=== PATIENT | male | born 1955 | race African-American/Black ===

== ENCOUNTER → 2019-11-23 11:52 | Outpatient (BNVA) | payer OTHER, SELFPAY | PROVIDERS: Visit Provider Internal Medicine | DX: M54.6 Pain in thoracic spine (principal); M54.5 Low back pain | CPT/HCPCS: 99213 ==

== ENCOUNTER → 2019-12-07 09:04 | Outpatient (BNVA) | payer OTHER, SELFPAY | PROVIDERS: Visit Provider Internal Medicine | DX: M54.5 Low back pain (principal) | CPT/HCPCS: 99213 ==

== ENCOUNTER 2019-12-12 09:00 | Outpatient (RCR) | payer OTHER, BC, SELFPAY ==
--- NOTE | 2019-12-29 08:35 | MHC.PT.DC ---
[facility] [place] Office [place] Office [place] Office [address] Jarvis Galeano [address] [phone] F: [phone] F: [phone] F: [phone] F: [phone] Physical Therapy Discharge Report Diagnosis: pt is a 64 y/o male presenting to physical therapy w/ script of lumbar strain. Date of Surgery: N/A Date of Evaluation: 10/10/19 Date of Discharge: 12/29/19 Treatments to Date: 13 Cancellations to Date: 0 No Shows to Date: 6 Discharge Status: Improved Function Independent with HEP Visit Non-compliance Discharge Summary: The patient has no showed his last four appointments scheduled. He was improving in his pain severity and radicular symptoms. He has progressed to a strengthening program and is independent with a home exercise program. He was educated regarding proper lifting mechanics and patient transfers for work-related tasks. He is discharged from this physical therapy plan of care due to noncompliance. Electronically signed by: Doris Breaux PT, DPT Please sign and return to therapist. Thank you for your referral.
== END 2019-12-29 08:35 | disposition other institution (70) ==
LOC: HO.PT 09:00
PROVIDERS: Visit Provider Physician Assistant
DX: S39.012D Strain of muscle, fascia and tendon of lower back, subsequent encounter (principal)
CPT/HCPCS: 97110; 97530

== ENCOUNTER → 2019-12-21 08:53 | Outpatient (BNVA) | payer OTHER, SELFPAY | PROVIDERS: Visit Provider Internal Medicine | DX: M54.5 Low back pain (principal); R10.31 Right lower quadrant pain | CPT/HCPCS: 99214 ==

== ENCOUNTER 2020-01-05 18:24 | Emergency (ER) | payer BC, SELFPAY ==
[2020-01-05 19:15] VITALS: BP 139/77; PULSE 76; RESP 20; TEMP 37.2; O2SAT 97; BMI 29.0
--- NOTE | 2020-01-05 19:50 | ECG_ITS ---
Test Reason : DYSPNEA Blood Pressure : / mmHG Vent. Rate : 067 BPM Atrial Rate : 067 BPM P-R Int : 156 ms QRS Dur : 088 ms QT Int : 364 ms P-R-T Axes : 049 001 014 degrees QTc Int : 384 ms Normal sinus rhythm Normal ECG When compared with ECG of 09-NOV-2017 08:52, Vent. rate has increased BY 24 BPM Referred By: Natalya Curiel Electronically Signed By:SUNDAR TRUJILLO MD
--- NOTE | 2020-01-05 19:50 | XR_ITS ---
EXAMINATION: XR CHEST CLINICAL INFORMATION: Chest pain and shortness of breath COMPARISON: 11/09/2017 TECHNIQUE: Frontal view of the chest was obtained. FINDINGS: No significant abnormality is noted involving the heart, lungs, mediastinum, bony thorax or soft tissues. Again noted is borderline sized heart. XR/XR chest 1V IMPRESSION: No acute intrathoracic disease.
--- NOTE | 2020-01-05 20:23 | ED.SOB ---
HPI - SOB/Dyspnea General Chief Complaint: Dyspnea Stated Complaint: SOB COVID + Time Seen by Provider: 01/05/20 19:37 Source: patient Mode of arrival: ambulatory History of Present Illness HPI Narrative: 64-year-old male COVID-19 positive on Wednesday presenting to ED complaining of increased SOB, myalgias, and fatigue over the past few days. Also reports chest discomfort and subjective fevers at home. 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 of breath and cough Related Data Previous Rx's Medication Instructions Recorded albuterol sulfate 2 puff INHALATION Q4-6H PRN #6.7 g 01/05/20 Allergies Allergy/AdvReac Type Severity Reaction Status Date / Time No Known Allergies Allergy Unverified 10/26/19 16:15 [No Known Allergies*] Review of Systems Review of Systems: Constitutional: No Weight loss, No+ Fever, No Chills Cardiovascular: + Chest Pain, + SOB Respiratory: + Cough, No Sputum, No Wheezing Gastrointestinal: No Nausea, No Vomiting, No Diarrhea, No Constipation, No Abdominal pain Genitourinary: No Dysuria, No Urinary Frequency, No Hematuria Musculoskeletal: No joint pain, + Myalgias, No Joint Swelling Skin: No Skin Lesions, No rash Yes all other systems are reviewed and are negative [facility] Past Medical History Attestation statement: The following information was validated with the patient. Medical History (Updated 01/05/20 @ 20:28 by BRANDI Hays) No known health problems Social History Social History Alcohol intake: current Alcohol intake frequency: a few times a month Smoking Status: Never smoker Smoked in Last 30 Days: No Use of substances other than those prescribed or required for medical reasons: No Advance Directives: No Advance Directives Information Provided: No Physical Exam Vital Signs: Vital Signs: Last Vital Signs Temp 98.9 F 01/05/20 19:15 Pulse 76 01/05/20 19:15 Resp 20 01/05/20 19:15 BP 139/77 01/05/20 19:15 Pulse Ox 97 01/05/20 19:15 Body Mass Index 29.0 Const: General: cooperative and healthy appearing Orientation/consciousness: patient oriented x3 Limitations: no limitations HENMT: Head: Yes normal to inspection Ears: hearing grossly normal bilaterally General nose exam: Normal external nose present Face and sinus: Yes normal facial exam Eyes: General: appearance normal, both eyes and all related structures EOM: EOMs intact bilaterally Neck: Neck: Yes normal visual inspection Resp: Effort & Inspection: normal respiratory effort Auscultation: clear to auscultation bilaterally, no rhonchi and no wheezes Cardio: Rate: regular rate Heart sounds: S1 normal heart sound present and S2 normal heart sound present GI: Inspection: Yes normal to inspection Palpation (GI): Soft to palpation, nontender, no guarding and not rigid Skin: Rashes: no rashes Wounds: no wounds Neuro: General: patient oriented x3 Gait exam (Neuro): Normal gait present Extrem: Other: No LE edema or calf tenderness General: Yes normal to inspection Course Course Course Narrative: -CXR unremarkable -2099--ED care transferred to [facility] Trimble pending labs and anticipated DC home MDM - SOB/Dyspnea MDM Narrative Medical decision making narrative: 64-year-old male COVID-19 positive on Wednesday presenting to ED complaining of increased SOB, myalgias, and fatigue over the past few days. On exam VSS, NAD, well appearing, lungs CTA, no LE edema. Concern for COVID-19/viral syndrome. Rule out pneumonia. Lower concern for ACS/PE Plan: EKG, labs, CXR, reassess Discharge Plan Discharge Clinical Impression: COVID-19 Patient Disposition: Home, Self-Care Instructions: COVID-19 (Coronavirus Disease 2019) (ED) Additional Instructions: Your x-ray was unremarkable today in the ED Based on your symptoms and history we have sent a COVID-19. Although your RESULT IS PENDING at this time. RESULTS should return within 72 hours. At this time you will be contacted with either NEGATIVE OR POSITIVE results. -Please wait until we contact you for your results. At this time you will be okay for discharge. Please plan for self quarantine for up to 14 days. Do not expose yourself to others. You may not go to work. If testing does come back negative you may return to activities as long as you are no longer having any symptoms for at least 3 days. Please continue to follow cold instructions and wash your hands frequently. You may take Tylenol as directed on the bottle for pain or fever. Patient seen in the emergency department on 08/04/2019 and should be excused from work until negative test results AND until 72 hours without any symptoms AND at least 10 days have passed since symptoms first appeared or since last exposure to COVID-19 positive patient CDC Guidelines for home isolation: - Stay away from others - WEAR A MASK if you are sick AND STAY HOME - Cover your mouth and nose with a tissue when you cough or sneeze. Dispose of tissues in a lined trash can and wash your hands immediately with soap and water for at least 20 seconds. If soap and water are not available, clean hands with alcohol-based hand natural gas engineer that contains at least 60% alcohol. - Clean your hands often with soap and water for at least 20 seconds - Avoid touching your eyes, nose and mouth with unwashed hands - Do not share dishes, drinking glasses, cups, eating utensils, towels, or bedding with other people in your home. After using these items, wash them thoroughly with soap and water or put in the fiber heel piece shaper. - Clean high-touch surfaces in your isolation area ( sick room and bathroom) every day; let a caregiver clean and disinfect high-touch surfaces in other areas of the home. Clean the area or item with soap and water or another detergent if it is dirty. Then, use a household disinfectant. - Limit contact with pets and animals: If you must care for a pet, wash your hands before and after interacting with them) Prescriptions: New albuterol sulfate 90 mcg/actuation HFA aerosol inhaler 2 puff inhalation Q4-6H PRN (Reason: shortness of breath or wheezing) Qty: 6.7 RF: 0 Referrals: Physician,Unknown [Primary Care Provider] - 2 days (Your doctor call)
[2020-01-05 21:07] LABS: MANUAL DIFF FLAG NO
[2020-01-05 21:12] LABS: Basophils Percent Auto 0.2 % (0-2); Eosinophils Absolute Auto 0.1 X10*3/uL (0.0-0.4); Eosinophils Percent Auto 1.4 % (0-4); Hematocrit 44.1 % (42-52); Hemoglobin 14.5 g/dl (14.0-18.0); Imm Gran Abs Auto 0.01 X10*3/uL (0.00-0.03); Imm Gran Pct Auto 0.2 % (0.0-0.4); Lymphocytes Absolute Auto 0.9 X10*3/uL (1.2-4.9); Lymphocytes Percent Auto 19.6 % (20-40); Mean Corpuscular HGB Conc 32.9 g/dl (31.0-36.0); Mean Corpuscular Hemoglobin 29.1 pg (27.0-33.0); Mean Corpuscular Volume 88.6 fL (80-98); Mean Platelet Volume 10.8 fL (9.4-12.4); Monocytes Absolute Auto 0.5 X10*3/uL (0.1-1.2); Monocytes Percent Auto 11.2 % (2-11); Neutrophils Percent Auto 67.4 % (45-73); Platelet Count 175 X10*3/uL (160-400); Red Blood Count 4.98 X10*6/uL (4.60-5.80); Red Cell Distribution Width 11.9 % (11.0-16.0); White Blood Count 4.4 X10*3/uL (4.8-10.8)
[2020-01-05 21:39] LABS: Alanine Aminotransferase 17 U/L (0-40); Alkaline Phosphatase 71 U/L (39-117); Anion Gap 12 (12-20); Aspartate Amino Transferase 14 U/L (5-37); Bilirubin Direct 0.2 mg/dL (0.0-0.5); Bilirubin Total 0.5 mg/dL (0.0-1.0); Blood Urea Nitrogen 12 mg/dL (9-16); Calcium 8.8 mg/dL (8.4-10.2); Carbon Dioxide 31 mmol/L (22-29); Chloride 100 mmol/L (96-108); Creatinine Clr Calc Pharmacy 85.1; Estimated Glomerular Filt Rate > 60; Glucose Random 82 mg/dL (60-115); Lactate Dehydrogenase 186 U/L (118-273); Potassium 4.5 mmol/l (3.3-5.1); Sodium 138 mmol/L (135-145); Total Protein 6.9 g/dL (6.5-8.0)
[2020-01-05 21:46] LABS: B Type Natriuretic Peptide < 10 pg/mL (<100); Troponin-I High Sensitivity < 3.5 ng/L (<3.5-35.0)
[2020-01-05 21:56] LABS: Procalcitonin 0.04 ng/mL
[2020-01-05 22:03] LABS: Ferritin 242 ng/mL (20-250)
== END 2020-01-05 22:27 | disposition home or self-care (01) ==
PROVIDERS: Physician Assistant; Emergency Provider Emergency Medicine
DX: U07.1 COVID-19 (principal); R05 Cough; M79.10 Myalgia, unspecified site; R07.89 Other chest pain; R06.02 Shortness of breath; Z20.828 Contact with and (suspected) exposure to other viral communicable diseases
CPT/HCPCS: 36415; 71045; 80048; 80076; 82728; 83615; 83735; 83880; 84145; 84484; 85025; 93005; 99284

== ENCOUNTER → 2020-01-26 13:40 | Outpatient (BNVA) | payer OTHER, SELFPAY | PROVIDERS: Visit Provider Internal Medicine | DX: R10.30 Lower abdominal pain, unspecified (principal); M54.5 Low back pain | CPT/HCPCS: 99213 ==

== ENCOUNTER → 2020-02-13 09:44 | Outpatient (BNVA) | payer OTHER, SELFPAY | PROVIDERS: Visit Provider Internal Medicine | DX: R10.30 Lower abdominal pain, unspecified (principal); M54.5 Low back pain | CPT/HCPCS: 99213 ==

== ENCOUNTER → 2020-03-05 08:24 | Outpatient (BNVA) | payer OTHER, SELFPAY | PROVIDERS: Visit Provider Internal Medicine | DX: R20.2 Paresthesia of skin (principal); M54.5 Low back pain | CPT/HCPCS: 99213 ==

== ENCOUNTER 2022-04-29 18:01 | Emergency (ER) | payer MEDICARE, SELFPAY ==
--- NOTE | ~2022-04-29 | XR_ITS ---
EXAMINATION: XR CHEST CLINICAL INFORMATION: Pain. COMPARISON: Chest radiograph 01/05/2020. TECHNIQUE: 2 views of the chest were obtained. FINDINGS: No significant abnormality is noted involving the heart, lungs, mediastinum, bony thorax or soft tissues. XR/XR chest 2V IMPRESSION: Unremarkable examination.
[2022-04-29 18:03] VITALS: BP 134/75; PULSE 79; RESP 18; TEMP 36.9; O2SAT 95; BMI 28.1
--- NOTE | 2022-04-29 18:05 | ECG_ITS ---
Test Reason : CHEST PAIN Blood Pressure : / mmHG Vent. Rate : 071 BPM Atrial Rate : 071 BPM P-R Int : 168 ms QRS Dur : 100 ms QT Int : 354 ms P-R-T Axes : 055 -01 036 degrees QTc Int : 384 ms Normal sinus rhythm with sinus arrhythmia Normal ECG When compared with ECG of 05-JAN-2020 20:30, No significant change was found Referred By: Jin Whyte Electronically Signed By:DEMAR MOORE MD
--- NOTE | 2022-04-29 18:08 | ED.GENADULT ---
HPI - General Adult General Chief complaint: Upper Respiratory Symptoms <Jin Whyte - Last Filed: 04/29/22 18:09> Stated complaint: Chest Pain, Cough <Jin Whyte - Last Filed: 04/29/22 18:09> Time Seen by Provider: 04/29/22 21:46 <Jin Whyte - Last Filed: 04/29/22 18:09> Source: patient <Marcella Casas MD - Last Filed: 04/29/22 22:06> Mode of arrival: ambulatory <Marcella Casas MD - Last Filed: 04/29/22 22:06> Limitations: no limitations <Marcella Casas MD - Last Filed: 04/29/22 22:06> History of Present Illness HPI narrative: Patient comes in the emergency room complaining of paranasal pain, sinus pressure. Subjective fever and chills. Patient also complaining of coughing and producing phlegm. Patient states that he has been having chest pain only with coughing, no chest pain at this time, no shortness of breath. <Marcella Casas MD - Last Filed: 04/29/22 22:06> Related Data Home medications: Previous Rx's Medication Instructions Recorded albuterol sulfate 90 mcg/actuation 2 puff inhalation Q4-6H PRN 01/05/20 aerosol inhaler shortness of breath or wheezing #6.7 grams azithromycin 250 mg tablet 250 mg PO DAILY 4 days #4 tabs 04/29/22 fluticasone propionate 50 1 spray intranasal Q12H #16 grams 04/29/22 mcg/actuation nasal spray,suspension (Flonase Allergy Relief) <Jin Whyte - Last Filed: 04/29/22 18:09> Allergies/adverse reactions: Allergies Allergy/AdvReac Type Severity Reaction Status Date / Time No Known Allergies Allergy Unverified 10/26/19 16:15 [No Known Allergies*] <Jin Whyte - Last Filed: 04/29/22 18:09> Review of Systems Review of Systems: Constitutional : No Weight loss, No Fever, No Chills, No Night Sweats, No Fatigue, No Malaise ENT/Mouth : No ear pain, complaining of nasal congestion and sinus pressure, no sore throat Eyes: No Eye Pain, No Swelling, No Redness, No Foreign Body, No Discharge, No Vision Changes Cardiovascular : No Chest Pain, No SOB, No Dyspnea on Exertion, No Orthopnea, No Edema, No Palpitations Respiratory : No Cough, No Sputum, No Wheezing, No Smoke Exposure, No Dyspnea Gastrointestinal : No Nausea, No Vomiting, No Diarrhea, No Constipation, No abdominal Pain, No Hematochezia, No Melena Genitourinary : no irregular bleeding, No Dysuria, No Urinary Frequency, No Hematuria, No Urinary Incontinence, No Urgency, No Flank Pain, No Urinary Flow Changes, No Hesitancy Musculoskeletal : No joint pain, No Myalgias, No Joint Swelling Skin : No Skin Lesions, No rash Neuro : No Weakness, No Numbness, No Paresthesias, No Loss of Consciousness, No Dizziness, No Headache Psych : No Anxiety/Panic, No Depression, No SI/HI/AH/VH, No Social Issues, Heme/Lymph: No Bruising, No Bleeding,No Lymphadenopathy Endocrine : No Polyuria, No Polydipsia, No Temperature Intolerance <Marcella Casas MD - Last Filed: 04/29/22 22:06> [facility] Past Medical History Medical History: Medical History No known health problems <Jin Whyte - Last Filed: 04/29/22 18:09> Social History Social History: Social History Alcohol intake: current Alcohol intake frequency: a few times a month Advance Directives: No Advance Directives Information Provided: Yes <Jin Whyte - Last Filed: 04/29/22 18:09> Physical Exam ED Vital Signs: Vital Signs - 24 hr 04/29/22 18:03 Temperature 98.4 F Pulse Rate 79 Respiratory Rate 18 Blood Pressure 134/75 Pulse Oximetry 95 Oxygen Delivery Method Room Air BMI result Body Mass Index 28.1 <Jin Whyte - Last Filed: 04/29/22 18:09> Vital Signs - 24 hr 04/29/22 18:03 Temperature 98.4 F Pulse Rate 79 Respiratory Rate 18 Blood Pressure 134/75 Pulse Oximetry 95 Oxygen Delivery Method Room Air BMI result Body Mass Index 28.1 <Marcella Casas MD - Last Filed: 04/29/22 22:06> Const Other: Appearance: Alert. Oriented X3. No acute distress. Eyes: Pupils equal, round and reactive to light. ENT: Pharynx normal. No erythema, no exudates, pain to palpation over the paranasal sinuses Neck: Normal inspection. Neck supple. No lymph nodes noted. No crepitus CVS: Normal heart rate and rhythm. Pulses normal. Normal S1 and S2 Respiratory: No respiratory distress. Breath sounds normal. No Wheezing. No rales Abdomen: Soft and nontender. No rigidity. No distention. Skin: Skin warm and dry. Normal skin color. Normal skin turgor. Extremities: No lower extremity edema. No Lacerations. No Rash Neuro: Oriented X 3. No motor deficit. No sensory deficit. Moving all extremities. No slurred speech. CN 2 through 12 grossly intact Psych: calm, cooperative, normal affect <Marcella Casas MD - Last Filed: 04/29/22 22:06> Course Course Course Narrative: This 66-year-old male presents for evaluation of multiple complaints including chest pain, shortness of breath, cough with yellow tinged present. He also complains of chills. Workup ordered including chest x-ray, viral swab, EKG and labs <Jin Whyte - Last Filed: 04/29/22 18:09> Medical Decision Making Medical Decision Making MDM Narrative: -viral panel negative, white blood cell count unremarkable, no fever chills, normal blood pressure -my interpretation of chest x-ray: No infiltrates -patient is significantly tender to palpation over the paranasal sinuses, patient will be given a dose of Z-Jason. First dose given in the ED today. <Marcella Casas MD - Last Filed: 04/29/22 22:06> Differential Diagnosis Differential Diagnoses: The differential diagnosis associated with the presentation includes (Influenza, COVID, RSV, viral syndrome, bacterial sinusitis) <Marcella Casas MD - Last Filed: 04/29/22 22:06> Lab Data MDM Lab Attestation statement: I reviewed the patient's lab results. <Marcella Casas MD - Last Filed: 04/29/22 22:06> Result Diagrams: 04/29/22 18:20 04/29/22 18:20 <Jin Whyte - Last Filed: 04/29/22 18:09> Labs: Lab Results 03/22/23 03/22/23 03/22/23 Range/Units 18:20 18:20 18:20 WBC 7.0 (4.8-10.8) X10*3/uL RBC 4.42 L (4.60-5.80) X10*6/uL Hgb 13.1 L (14.0-18.0) g/dl Hct 39.4 L (42.0-52.0) % MCV 89.1 (80.0-98.0) fL MCH 29.6 (27.0-33.0) pg MCHC 33.2 (31.0-36.0) g/dl RDW 11.7 (11.0-16.0) % Plt Count 219 (160-400) X10*3/uL MPV 10.5 (9.4-12.4) fL Immature Gran % (Auto) 1.0 H (0.0-0.4) % Neut % (Auto) 68.5 (45-73) % Lymph % (Auto) 19.8 L (20-40) % [place] % (Auto) 7.7 (2-11) % Eos % (Auto) 2.6 (0-4) % Baso % (Auto) 0.4 (0-2) % Lymph # (Auto) 1.4 (1.2-4.9) X10*3/uL [place] # (Auto) 0.5 (0.1-1.2) X10*3/uL Eos # (Auto) 0.2 (0.0-0.4) X10*3/uL Baso # (Auto) 0.0 (0.0-0.2) X10*3/uL Abs Immat Gran (auto) 0.07 H (0.00-0.03) X10*3/uL Absolute Neuts (auto) 4.8 (2.0-8.3) x10*3/uL Absolute Nucleated RBC 0.000 (0.0-0.012) X10*3/uL Nucleated RBC % (auto) 0.0 (0.0-0.2) /100WBC Sodium 144 (135-145) mmol/L Potassium 3.9 (3.3-5.1) mmol/L Chloride 108 (96-108) mmol/L Carbon Dioxide 26 (22-29) mmol/L Anion Gap 14 (12-20) BUN 9 (9-16) mg/dL Creatinine 0.88 (0.5-1.4) mg/dL Estim Creat Clear Calc 85.6 Estimated GFR > 60 Random Glucose 124 H (60-115) mg/dL Calcium 9.0 (8.4-10.2) mg/dL Magnesium 2.2 (1.6-2.6) mg/dL Total Bilirubin 0.4 (0.0-1.0) mg/dL AST 12 (5-37) U/L ALT 17 (0-40) U/L Alkaline Phosphatase 79 (39-117) U/L Troponin I High Sens < 3.5 (<3.5-35.0) ng/L Total Protein 6.5 (6.5-8.0) g/dL Albumin 4.0 (3.5-5.0) g/dL Lipase 18 (8-78) U/L Influenza Type A (PCR) (Negative) Influenza Type B (PCR) (Negative) RSV RNA Qual (PCR) (Negative) SARS-CoV-2 RNA (RT-PCR) (Negative) 04/29/22 Range/Units 18:20 WBC (4.8-10.8) X10*3/uL RBC (4.60-5.80) X10*6/uL Hgb (14.0-18.0) g/dl Hct (42.0-52.0) % MCV (80.0-98.0) fL MCH (27.0-33.0) pg MCHC (31.0-36.0) g/dl RDW (11.0-16.0) % Plt Count (160-400) X10*3/uL MPV (9.4-12.4) fL Immature Gran % (Auto) (0.0-0.4) % Neut % (Auto) (45-73) % Lymph % (Auto) (20-40) % [place] % (Auto) (2-11) % Eos % (Auto) (0-4) % Baso % (Auto) (0-2) % Lymph # (Auto) (1.2-4.9) X10*3/uL [place] # (Auto) (0.1-1.2) X10*3/uL Eos # (Auto) (0.0-0.4) X10*3/uL Baso # (Auto) (0.0-0.2) X10*3/uL Abs Immat Gran (auto) (0.00-0.03) X10*3/uL Absolute Neuts (auto) (2.0-8.3) x10*3/uL Absolute Nucleated RBC (0.0-0.012) X10*3/uL Nucleated RBC % (auto) (0.0-0.2) /100WBC Sodium (135-145) mmol/L Potassium (3.3-5.1) mmol/L Chloride (96-108) mmol/L Carbon Dioxide (22-29) mmol/L Anion Gap (12-20) BUN (9-16) mg/dL Creatinine (0.5-1.4) mg/dL Estim Creat Clear Calc Estimated GFR Random Glucose (60-115) mg/dL Calcium (8.4-10.2) mg/dL Magnesium (1.6-2.6) mg/dL Total Bilirubin (0.0-1.0) mg/dL AST (5-37) U/L ALT (0-40) U/L Alkaline Phosphatase (39-117) U/L Troponin I High Sens (<3.5-35.0) ng/L Total Protein (6.5-8.0) g/dL Albumin (3.5-5.0) g/dL Lipase (8-78) U/L Influenza Type A (PCR) NEGATIVE (Negative) Influenza Type B (PCR) NEGATIVE (Negative) RSV RNA Qual (PCR) NEGATIVE (Negative) SARS-CoV-2 RNA (RT-PCR) NEGATIVE (Negative) <Jin Whyte - Last Filed: 04/29/22 18:09> Lab Results 04/29/22 04/29/22 04/29/22 Range/Units 18:20 18:20 18:20 WBC 7.0 (4.8-10.8) X10*3/uL RBC 4.42 L (4.60-5.80) X10*6/uL Hgb 13.1 L (14.0-18.0) g/dl Hct 39.4 L (42.0-52.0) % MCV 89.1 (80.0-98.0) fL MCH 29.6 (27.0-33.0) pg MCHC 33.2 (31.0-36.0) g/dl RDW 11.7 (11.0-16.0) % Plt Count 219 (160-400) X10*3/uL MPV 10.5 (9.4-12.4) fL Immature Gran % (Auto) 1.0 H (0.0-0.4) % Neut % (Auto) 68.5 (45-73) % Lymph % (Auto) 19.8 L (20-40) % [place] % (Auto) 7.7 (2-11) % Eos % (Auto) 2.6 (0-4) % Baso % (Auto) 0.4 (0-2) % Lymph # (Auto) 1.4 (1.2-4.9) X10*3/uL [place] # (Auto) 0.5 (0.1-1.2) X10*3/uL Eos # (Auto) 0.2 (0.0-0.4) X10*3/uL Baso # (Auto) 0.0 (0.0-0.2) X10*3/uL Abs Immat Gran (auto) 0.07 H (0.00-0.03) X10*3/uL Absolute Neuts (auto) 4.8 (2.0-8.3) x10*3/uL Absolute Nucleated RBC 0.000 (0.0-0.012) X10*3/uL Nucleated RBC % (auto) 0.0 (0.0-0.2) /100WBC Sodium 144 (135-145) mmol/L Potassium 3.9 (3.3-5.1) mmol/L Chloride 108 (96-108) mmol/L Carbon Dioxide 26 (22-29) mmol/L Anion Gap 14 (12-20) BUN 9 (9-16) mg/dL Creatinine 0.88 (0.5-1.4) mg/dL Estim Creat Clear Calc 85.6 Estimated GFR > 60 Random Glucose 124 H (60-115) mg/dL Calcium 9.0 (8.4-10.2) mg/dL Magnesium 2.2 (1.6-2.6) mg/dL Total Bilirubin 0.4 (0.0-1.0) mg/dL AST 12 (5-37) U/L ALT 17 (0-40) U/L Alkaline Phosphatase 79 (39-117) U/L Troponin I High Sens < 3.5 (<3.5-35.0) ng/L Total Protein 6.5 (6.5-8.0) g/dL Albumin 4.0 (3.5-5.0) g/dL Lipase 18 (8-78) U/L Influenza Type A (PCR) (Negative) Influenza Type B (PCR) (Negative) RSV RNA Qual (PCR) (Negative) SARS-CoV-2 RNA (RT-PCR) (Negative) 04/29/22 Range/Units 18:20 WBC (4.8-10.8) X10*3/uL RBC (4.60-5.80) X10*6/uL Hgb (14.0-18.0) g/dl Hct (42.0-52.0) % MCV (80.0-98.0) fL MCH (27.0-33.0) pg MCHC (31.0-36.0) g/dl RDW (11.0-16.0) % Plt Count (160-400) X10*3/uL MPV (9.4-12.4) fL Immature Gran % (Auto) (0.0-0.4) % Neut % (Auto) (45-73) % Lymph % (Auto) (20-40) % [place] % (Auto) (2-11) % Eos % (Auto) (0-4) % Baso % (Auto) (0-2) % Lymph # (Auto) (1.2-4.9) X10*3/uL [place] # (Auto) (0.1-1.2) X10*3/uL Eos # (Auto) (0.0-0.4) X10*3/uL Baso # (Auto) (0.0-0.2) X10*3/uL Abs Immat Gran (auto) (0.00-0.03) X10*3/uL Absolute Neuts (auto) (2.0-8.3) x10*3/uL Absolute Nucleated RBC (0.0-0.012) X10*3/uL Nucleated RBC % (auto) (0.0-0.2) /100WBC Sodium (135-145) mmol/L Potassium (3.3-5.1) mmol/L Chloride (96-108) mmol/L Carbon Dioxide (22-29) mmol/L Anion Gap (12-20) BUN (9-16) mg/dL Creatinine (0.5-1.4) mg/dL Estim Creat Clear Calc Estimated GFR Random Glucose (60-115) mg/dL Calcium (8.4-10.2) mg/dL Magnesium (1.6-2.6) mg/dL Total Bilirubin (0.0-1.0) mg/dL AST (5-37) U/L ALT (0-40) U/L Alkaline Phosphatase (39-117) U/L Troponin I High Sens (<3.5-35.0) ng/L Total Protein (6.5-8.0) g/dL Albumin (3.5-5.0) g/dL Lipase (8-78) U/L Influenza Type A (PCR) NEGATIVE (Negative) Influenza Type B (PCR) NEGATIVE (Negative) RSV RNA Qual (PCR) NEGATIVE (Negative) SARS-CoV-2 RNA (RT-PCR) NEGATIVE (Negative) <Marcella Casas MD - Last Filed: 04/29/22 22:06> Independent Interpretation I performed an independent interpretation of an: Plain X-Ray <Marcella Casas MD - Last Filed: 04/29/22 22:06> Radiology Impression Discussion of test interpretation with radiology: I have reviewed the radiologist's reading. <Marcella Casas MD - Last Filed: 04/29/22 22:06> Radiologist Impression: FINDINGS: No significant abnormality is noted involving the heart, lungs, mediastinum, bony thorax or soft tissues. XR/XR chest 2V IMPRESSION: Unremarkable examination. <Marcella Casas MD - Last Filed: 04/29/22 22:06> Discharge Plan Discharge Clinical Impression: Sinusitis <Jin Whyte - Last Filed: 04/29/22 18:09> Patient Disposition: Home, Self-Care <Jin Whyte - Last Filed: 04/29/22 18:09> Instructions: Sinusitis (ED) <Jin Whyte - Last Filed: 03/22/23 18:09> Additional Instructions: Please follow-up with your primary care physician tomorrow. If you have any worsening or new symptoms, please return to the emergency room or call 911 <Jin Whyte - Last Filed: 04/29/22 18:09> Prescriptions: New azithromycin 250 mg tablet 250 mg PO DAILY 4 Days Qty: 4 0RF Rx Instructions: start on day 2 of therapy fluticasone propionate [Flonase Allergy Relief] 50 mcg/actuation spray,suspension 1 spray intranasal Q12H Qty: 16 0RF Rx Instructions: administer into each nostril No Action albuterol sulfate 90 mcg/actuation HFA aerosol inhaler 2 puff inhalation Q4-6H PRN (Reason: shortness of breath or wheezing) Qty: 6.7 0RF <Jin Whyte - Last Filed: 04/29/22 18:09>
[2022-04-29 18:26] LABS: MANUAL DIFF FLAG NO
[2022-04-29 18:40] LABS: Basophils Percent Auto 0.4 % (0-2); Eosinophils Absolute Auto 0.2 X10*3/uL (0.0-0.4); Eosinophils Percent Auto 2.6 % (0-4); Hematocrit 39.4 % (42.0-52.0); Hemoglobin 13.1 g/dl (14.0-18.0); Imm Gran Abs Auto 0.07 X10*3/uL (0.00-0.03); Lymphocytes Absolute Auto 1.4 X10*3/uL (1.2-4.9); Lymphocytes Percent Auto 19.8 % (20-40); Mean Corpuscular HGB Conc 33.2 g/dl (31.0-36.0); Mean Corpuscular Hemoglobin 29.6 pg (27.0-33.0); Mean Corpuscular Volume 89.1 fL (80.0-98.0); Mean Platelet Volume 10.5 fL (9.4-12.4); Monocytes Absolute Auto 0.5 X10*3/uL (0.1-1.2); Monocytes Percent Auto 7.7 % (2-11); Neutrophils Absolute Auto 4.8 x10*3/uL (2.0-8.3); Neutrophils Percent Auto 68.5 % (45-73); Platelet Count 219 X10*3/uL (160-400); Red Blood Count 4.42 X10*6/uL (4.60-5.80); Red Cell Distribution Width 11.7 % (11.0-16.0)
[2022-04-29 18:50] LABS: Alanine Aminotransferase 17 U/L (0-40); Alkaline Phosphatase 79 U/L (39-117); Anion Gap 14 (12-20); Aspartate Amino Transferase 12 U/L (5-37); Bilirubin Total 0.4 mg/dL (0.0-1.0); Blood Urea Nitrogen 9 mg/dL (9-16); Carbon Dioxide 26 mmol/L (22-29); Chloride 108 mmol/L (96-108); Creatinine Clr Calc Pharmacy 85.6; Estimated Glomerular Filt Rate > 60; Glucose Random 124 mg/dL (60-115); Lipase 18 U/L (8-78); Magnesium 2.2 mg/dL (1.6-2.6); Potassium 3.9 mmol/L (3.3-5.1); Sodium 144 mmol/L (135-145); Total Protein 6.5 g/dL (6.5-8.0)
[2022-04-29 18:59] LABS: Troponin-I High Sensitivity < 3.5 ng/L (<3.5-35.0)
[2022-04-29 19:07] LABS: Influenza A PCR NEGATIVE (Negative); Influenza B PCR NEGATIVE (Negative); Resp Syncy Virus RNA Qual PCR NEGATIVE (Negative); SARS COV2 PCR INHOUSE NEGATIVE (Negative)
--- OUTSIDE RECORDS SUMMARY | 2022-04-29 21:32 | XMS_ITS | Continuity of Care Document ---
:1955 Author Organization [facility] Adult Address [address] [place] [address]- Care Team Providers Name Role Phone Santy UMANA, Keagan Primary Care Physician [facility]19 - 01/18/20 [facility] [address] [place] [phone]- Allergies, Adverse Reactions, Alerts Substance Reaction Severity Status NKA Active Immunizations Given and Recorded Vaccine Date Status Refusal Reason tetanus/diphtheria/pertussis, acel(Tdap) 06/10/18 Given influenza virus vaccine, inactivated1 11/11/17 Given influenza virus vaccine, inactivated2 11/26/16 Given influenza virus vaccine, inactivated3 10/24/15 Given influenza virus vaccine, inactivated4 12/04/14 Given influenza virus vaccine, inactivated5 11/18/13 Given Hepatitis A-Hepatitis B Vaccine 06/04/14 Given Hepatitis A-Hepatitis B Vaccine 05/07/14 Given Poliovirus Vaccine, Inactivated 06/04/14 Given Typhoid Vaccine, Inactivated 05/07/14 Given Yellow Fever Vaccine 05/07/14 Given Meningococcal Conjugate Vaccine 05/07/14 Given diphtheria-tetanus toxoids (DT)6 03/21/08 Given 1Result Comment: [11/11/2017] [facility]: [id number] Note: rvoq3Dvcus Note: [id number] Note: Bprl1Bzznz Note: [facility]6Admin Note: Previous PCP ( Unrecalled ) Medications cromolyn 4% ophthalmic solution 1 drops, Eyes, Both, 4 times a day, PRN as needed for itching, # 10 mL, 0 Refills, Maintenance, 12/19/19 11:25:00 EST, [facility] 1967, 1 drops Eyes, Both 4 times a day,PRN:as needed for itching,170.4, cm, 12/19/19 11:08:00 EST, Height Start Date: 12/19/19 Status: OrderedFish Oil 1200 mg oral capsule 1 capsule = 1,200 mg, By Mouth, 3 times a day, 0 Refills, Maintenance, 06/29/17 8:36:05 EDT Start Date: 06/29/17 Status: OrderedMultivitamin Daily, 0 Refills, Maintenance, 06/29/17 8:36:51 EDT Start Date: 06/29/17 Status: OrderedTimolol 0.25% Ophth Eyes, Both, 2 times a day, Refills 0, Maintenance, 06/29/17 8:34:37 EDT Start Date: 06/29/17 Status: OrderedViagra 100 mg oral tablet 1 tablet = 100 mg, By Mouth, Daily, 1 hour before sexual activity, # 90 tablet, 0 Refills, Maintenance, 12/19/19 11:27:00 EST, Tablet, [facility] 1966, 170.4, cm, 12/19/19 11:08:00 EST, Height Start Date: 12/19/19 Status: OrderedVitamin B6 Daily, 0 Refills, Maintenance, 06/29/17 8:36:44 EDT Start Date: 06/29/17 Status: OrderedVitamin C By Mouth, Daily, 0 Refills, Maintenance, 06/29/17 8:36:24 EDT Start Date: 06/29/17 Status: Ordered Problem List Condition Effective Dates Status Health Status Informant Glaucoma(Confirmed) Active Erectile dysfunction(Confirmed) Active Social History Social History Type Response Smoking Status Never (less than 100 in life time) entered on: 12/19/19 Sex
--- OUTSIDE RECORDS SUMMARY | 2022-04-29 21:32 | XMS_ITS | Continuity of Care Document ---
:1955 Author Organization [facility] Adult Address [address] [place] [address]- Care Team Providers Name Role Phone Keagan Madera MD Primary Care Physician [facility]): 07/09/21 - 08/08/21 [facility] [address] [place] [phone]- Allergies, Adverse Reactions, Alerts No Known Allergies Immunizations Given and Recorded Vaccine Date Status Refusal Reason SARS-CoV-2 (COVID-19) mRNA BNT-162b2 vac 12/12/20 Recorde d SARS-CoV-2 (COVID-19) mRNA BNT-162b2 vac 03/09/20 Recorde d SARS-CoV-2 (COVID-19) mRNA BNT-162b2 vac 02/17/20 Recorde d Influenza Virus Vaccine (oldterm) 10/24/19 Recorded tetanus/diphtheria/pertussis, acel(Tdap) 06/10/18 Given influenza virus vaccine, inactivated1 11/11/17 Given influenza virus vaccine, inactivated2 11/26/16 Given influenza virus vaccine, inactivated3 10/24/15 Given influenza virus vaccine, inactivated 10/07/15 Recorded influenza virus vaccine, inactivated4 12/04/14 Given influenza virus vaccine, inactivated 10/26/14 Recorded influenza virus vaccine, inactivated5 11/18/13 Given Hepatitis A-Hepatitis B Vaccine 06/04/14 Given Hepatitis A-Hepatitis B Vaccine 05/07/14 Given Poliovirus Vaccine, Inactivated 06/04/14 Given Typhoid Vaccine, Inactivated 05/07/14 Given Yellow Fever Vaccine 05/07/14 Given Meningococcal Conjugate Vaccine 05/07/14 Given diphtheria-tetanus toxoids (DT)6 03/21/08 Given 1Result Comment: [11/11/2017] [facility]: [id number] Note: prbx1Rihrp Note: trhs0Flxwq Note: Welo4Rzsxj Note: [facility]6Admin Note: Previous PCP ( Unrecalled ) Medications Cialis 10 mg oral tablet 1 tablet = 10 mg, By Mouth, Daily, 1 hour before sexual activity, # 5 tablet, 5 Refills, Maintenance, 12/21/20 13:55:00 EST, Tablet, [facility] 1966, Partial fill upon patient request if the prescription is for a schedule II opioid drug., 169.5,... Start Date: 12/21/20 Status: Orderedcromolyn 4% ophthalmic solution 1 drops, Eyes, Both, 4 times a day, PRN as needed for itching, # 10 mL, 0 Refills, Maintenance, 12/21/20 13:54:00 EST, [facility] 1966, 1 drops Eyes, Both 4 times a day,PRN:as needed for itching,169.5, cm, 12/20/20 13:18:00 EST, Height Start Date: 12/21/20 Status: OrderedFish Oil 1200 mg oral capsule 1 capsule = 1,200 mg, By Mouth, 3 times a day, 0 Refills, Maintenance, 06/29/17 8:36:05 EDT Start Date: 06/29/17 Status: OrderedMultivitamin Daily, 0 Refills, Maintenance, 06/29/17 8:36:51 EDT Start Date: 06/29/17 Status: OrderedTimolol 0.25% Ophth Eyes, Both, 2 times a day, Refills 0, Maintenance, 06/29/17 8:34:37 EDT Start Date: 06/29/17 Status: Ordered Problem List Condition Effective Dates Status Health Status Informant Glaucoma(Confirmed) Active Erectile dysfunction(Confirmed) Active Social History Social History Type Response Smoking Status Never (less than 100 in life time) entered on: 12/19/19 Sex
--- OUTSIDE RECORDS SUMMARY | 2022-04-29 21:32 | XMS_ITS | Continuity of Care Document ---
:1955 Author Organization [facility] Address [address] [place] [address]- Care Team Providers Name Role Phone Keagan Madera MD Primary Care Physician [place] [facility] [place](s): 04/15/20 - 05/15/20 [facility] [address] [place] [phone]- Allergies, Adverse Reactions, Alerts Substance Reaction Severity Status NKA Active Immunizations Given and Recorded Vaccine Date Status Refusal Reason Influenza Virus Vaccine (oldterm) 10/24/19 Recorded tetanus/diphtheria/pertussis, [...] toxoids (DT)6 03/21/08 Given 1Result Comment: [11/11/2017] [facility]: [id number] Note: [id number] Note: [id number] Note: Zbdf3Otlry Note: [facility]6Admin Note: Previous PCP ( Unrecalled ) Medications cromolyn 4% ophthalmic solution 1 drops, Eyes, Both, 4 times a day, PRN as needed for itching, # 10 mL, 0 Refills, Maintenance, 12/19/19 11:25:00 EST, [facility] 1966, 1 drops Eyes, Both 4 [...] 0 Refills, Maintenance, 12/19/19 11:27:00 EST, Tablet, [facility] 1966, 170.4, cm, 12/19/19 11:08:00 EST, [...]
--- OUTSIDE RECORDS SUMMARY | 2022-04-29 21:32 | XMS_ITS | Continuity of Care Document ---
:1955 Author Organization [facility] Address [address] [place] [address]- Care Team Providers Name Role Phone Keagan Madera MD Primary Care Physician [facility] Date[facility]): 12/25/20 - 01/24/21 [facility] [address] [place] [phone]- Allergies, Adverse Reactions, Alerts Substance Reaction Severity [...] toxoids (DT)6 03/21/08 Given 1Result Comment: [11/11/2017] [facility]: [id number] Note: [id number] Note: iprc4Hwjbf Note: Wuef1Dezey Note: [facility]6Admin Note: Previous PCP ( Unrecalled ) Medications Cialis 10 mg oral tablet 1 tablet = 10 mg, By Mouth, Daily, 1 hour before sexual activity, # 5 tablet, 5 Refills, Maintenance, 12/21/20 13:55:00 EST, Tablet, [facility] 1966, Partial fill upon patient request if the prescription is for a schedule II opioid drug., 169.5,... Start Date: 12/21/20 Status: Orderedcromolyn 4% ophthalmic solution 1 drops, Eyes, Both, 4 times a day, PRN as needed for itching, # 10 mL, 0 Refills, Maintenance, 12/21/20 13:54:00 EST, [facility] 1966, 1 drops Eyes, Both 4 [...]
--- OUTSIDE RECORDS SUMMARY | 2022-04-29 21:32 | XMS_ITS | Continuity of Care Document ---
:1955 Author Organization [facility] Address [address] [place] [address]- Care Team Providers Name Role Phone Santy UMANA, Keagan Primary Care Physician [place] [facility] [place] 01/[place]/[address] [address]- Attending Physician: Keagan Madera MD Admitting Physician: Keagan Madera MD Referring Physician: Keagan Madera MD Allergies, Adverse Reactions, Alerts Substance Reaction Severity [...] toxoids (DT)6 03/21/08 Given 1Result Comment: [11/11/2017] [facility]: [id number] Note: [id number] Note: valk0Bydej Note: Cneg1Kzgoy Note: [facility]6Admin Note: Previous PCP ( Unrecalled ) Medications Cialis 10 mg oral tablet 1 tablet = 10 mg, By Mouth, Daily, 1 hour before sexual activity, # 5 tablet, 5 Refills, Maintenance, 12/21/20 13:55:00 EST, Tablet, [facility] 1966, Partial fill upon patient request if the prescription is for a schedule II opioid drug., 169.5,... Start Date: 12/21/20 Status: Orderedcromolyn 4% ophthalmic solution 1 drops, Eyes, Both, 4 times a day, PRN as needed for itching, # 10 mL, 0 Refills, Maintenance, 12/21/20 13:54:00 EST, [facility] 1966, 1 drops Eyes, Both 4 [...]
--- OUTSIDE RECORDS SUMMARY | 2022-04-29 21:32 | XMS_ITS | Continuity of Care Document ---
:1955 Author Organization [facility] Adult Address [address] [place] [address]- Care Team Providers Name Role Phone Keagan Madera MD Primary Care Physician [place] [facility] [place](s[place] 12/29/21 - 01/05/22 [facility] [address] [place] [address]- Encounter Diagnosis Well adult exam (Discharge Diagnosis) - 12/29/21 Erectile dysfunction (Discharge Diagnosis) - 12/29/21 Nocturia (Discharge Diagnosis) - 12/29/21 Screening for cardiovascular condition (Discharge Diagnosis) - 12/29/21 Attending Physician: Keagan Madera MD Allergies, Adverse Reactions, Alerts No Known Allergies Immunizations Given and Recorded Vaccine Date Status Refusal Reason [id number] 12y+ bivalent booster vax 11/28/21 Recorde d SARS-CoV-2 mRNA ([id number]) vax 09/09/21 Recorde d SARS-CoV-2 (COVID-19) mRNA BNT-162b2 vac 12/12/20 Recorde [...] toxoids (DT)6 03/21/08 Given 1Result Comment: [11/11/2017] [facility]: [id number] Note: rown0Ogkgf Note: gveq5Pihri Note: Kmky9Uztxf Note: [facility]6Admin Note: Previous PCP ( Unrecalled ) Medications Cialis 10 mg oral tablet 1 tablet = 10 mg, By Mouth, Daily, 1 hour before sexual activity, # 5 tablet, 5 Refills, Maintenance, 12/19/21 15:40:00 EST, Tablet, [facility], Partial fill upon patient request if the prescription is for a schedule II opioid drug., 169.5, c... Start Date: 12/19/21 Status: Orderedcromolyn 4% ophthalmic solution 1 drops, Eyes, Both, 4 times a day, PRN as needed for itching, # 10 mL, 0 Refills, Maintenance, 12/19/21 15:41:00 EST, [facility], 1 drops Eyes, Both 4 times a day,PRN:as needed for itching, 169.5, cm, 12/20/20 13:18:00 EST, Height Start Date: 12/19/21 Status: OrderedFish Oil 1200 mg oral capsule 1 capsule = 1,200 mg, By Mouth, 3 times a day, 0 Refills, Maintenance, 06/29/17 8:36:05 EDT Start Date: 06/29/17 Status: OrderedMultivitamin Daily, 0 Refills, Maintenance, 06/29/17 8:36:51 EDT Start Date: 06/29/17 Status: OrderedTimolol 0.25% Ophth Eyes, Both, 2 times a day, Refills 0, Maintenance, 06/29/17 8:34:37 EDT Start Date: 06/29/17 Status: Ordered Problem List Condition Confirmation Course Effective Dates Status Health Stat us Informant Glaucoma Confirmed Active Erectile Confirmed Active dysfunction Diagnosis Diagnosis Type Effective Dates Health Clinical Infor [facility] Status Service Well adult exam Discharge 12/29/21 Diagnosis Erectile dysfunction Discharge 12/29/21 Diagnosis Nocturia Discharge 12/29/21 Diagnosis Screening for Discharge 12/29/21 cardiovascular Diagnosis condition Vital Signs Most recent to oldest [Reference Range]: 1 Height 170.1 cm (12/29/21 8:44 AM) Weight 77.7 kg (12/29/21 8:44 AM) Oxygen Saturation [94-100 %] 98 % (12/29/21 8:44 AM) Pulse Rate [55-90 bpm] 54 bpm *L* (12/29/21 8:44 AM) Body Mass Index [18.5-24.99 kg/m2] 26.85 kg/m2 *H* (12/29/21 8:44 AM) Blood Pressure [90-138/55-84 mm Hg] 120/64 mm Hg (12/29/21 8:44 AM) Temperature [96.8-100.4 DegF] 98.5 DegF (12/29/21 8:44 AM) Mode of Delivery (Oxygen) Room air (12/29/21 8:44 AM) Blood pressure sites Arm, left (12/29/21 8:44 AM) Temperature Route Oral (12/29/21 8:44 AM) Weight Obtained Via Standing scale (12/29/21 8:44 AM) Social History Social History Type Response Smoking Status Never (less than 100 in life time) entered on: 12/19/19 Sex Note Tashia Alvarez: SIGN, VERIFY, PERFORM Event Display: Patient Education/Instruction Authored Date: [id number] [facility] *[facility] Clinical Summary Name FLORIDALMA CARMICHAEL Age 66 Years 1955 PCP [id number] Visit Date 12/29/2021 08:44:00 Additional Instructions: Scheduled Appointments?? Future Appointments ?No Future Appointments Scheduled Follow-Up Instructions ?? Diagnosis Encounter for general adult medical examination without abnormal findings; Male erectile dysfunction, unspecified; Nocturia; Encounter for screening for cardiovascular disorders Medications: Please continue your medications until treatment is completed or stopped by your provider. Discuss any questions related to medications with your provider. Medications to Continue with No Changes These medications were not printed or sent to your pharmacy Cromolyn Ophthalmic (cromolyn 4% ophthalmic solution) 1 Drops Both eyes 4 times a day as needed as needed for itching. Refills: 0. Next Dose: Multivitamin Daily. Next Dose: [place]-3 Polyunsaturated Fatty Acids (Fish Oil 1200 mg oral capsule) 1 capsule Oral 3 times a day. Next Dose: tadalafil (Cialis 10 mg oral tablet) 1 tab(s) Oral Daily. 1 hour before sexual activity. Refills: 5. Next Dose: Timolol Ophthalmic (Timolol 0.25% Ophth) Both eyes twice a day. Next Dose: Allergy Info:?? NKA Medications Given This Visit Future Orders ?PSA? Order Date:12/29/21?- Complete on or after?12/29/21 ?Lipid Panel? Order Date:12/29/21?- Complete on or after?12/29/21 Vital Signs Height 170.1 cm Weight 77.7 kg BMI 26.85 kg/m2 Blood Pressure 120 mm Hg/64 mm Hg Temperature 98.5 DegF Pulse Rate 54 bpm Respiratory Rate 02 Sat Mode of Delivery 98 %/Room air You can now view a summary of your hospital visit from the comfort of your home through a free online portal called [employer]. [employer] is a website that allows you to securely view yourmedical information including discharge summary, medications and follow-up visits. ??You can also send a secure electronic message to your doctor???s office to request appointments, renew medications or just ask a question. You can enroll at [email or web address] or register during your next office visit. Disclaimer:?? The information provided is of a general nature and is intended to be used in conjunction with the recommendations and advice of your health care practitioner. ??Every effort has been made to ensure that the information provided is accurate and complete at the time it is provided to you however, as your needs change, or, as new ??information becomes available, different or additional instructions may be required. If you have questions, please consult with your primary care provider or pharmacist, as appropriate.??This information is not intended to serve as substitution for assessment and evaluation by a qualified health care provider. If you do not have a primary care provider, you may find a [facility] provider by calling [facility] at [phone]. For information about the plan of care including goals and instructions for your diagnosis, please see the patient education orders section of this document. Patient Education Materials?? The content of this educational material or handout may have been modified, supplemented, or adaptedfrom its original content and format to support your individualized medical care. Patient Care team information Care Team PersonnelName: Keagan Madera MD Position: [facility] Primary Care Physician Member Role: PCP Address: Address: [address] [place] [address]- Care Team Related PersonsName: DYANA STOVER Address: home [address] [place] [address]
--- OUTSIDE RECORDS SUMMARY | 2022-04-29 21:32 | XMS_ITS | Continuity of Care Document ---
:1955 Author Organization [facility] Address [address] [place] [address]- Care Team Providers Name Role Phone Keagan Madera MD Primary Care Physician [place] [facility] [place](s): 12/20/20 - 12/27/20 [facility] [address] [place] [phone]- Encounter Diagnosis Well adult exam (Discharge Diagnosis) - 12/20/20 Erectile dysfunction (Discharge Diagnosis) - 12/20/20 Dizziness (Discharge Diagnosis) - 12/21/20 Nocturia (Discharge Diagnosis) - 12/21/20 Attending Physician: Keagan Madera MD Allergies, Adverse [...] Given 1Result Comment: [11/11/2017] [facility]: [id number] Note: [id number] Note: aefg6Zokyx Note: Nwkz1Djsck Note: [facility]6Admin Note: Previous PCP ( Unrecalled ) Medications Cialis 10 mg oral tablet 1 tablet = 10 mg, By Mouth, Daily, 1 hour before sexual activity, # 5 tablet, 5 Refills, Maintenance, 12/21/20 13:55:00 EST, Tablet, [facility] 1966, Partial fill upon patient request if the prescription is for a schedule II opioid drug., 169.5,... Start Date: 12/21/20 Status: Orderedcromolyn 4% ophthalmic solution 1 drops, Eyes, Both, 4 times a day, PRN as needed for itching, # 10 mL, 0 Refills, Maintenance, 12/21/20 13:54:00 EST, [facility] 1966, 1 drops Eyes, Both 4 [...] Status Informant Glaucoma(Confirmed) Active Erectile dysfunction(Confirmed) Active Diagnosis Diagnosis Type Effective Dates Health Clinical Infor mant Status Service Well adult exam Discharge 12/20/20 Diagnosis Erectile Discharge 12/20/20 dysfunction Diagnosis Dizziness Discharge 12/21/20 Diagnosis Nocturia Discharge 12/21/20 Diagnosis Vital Signs Most recent to oldest [Reference Range]: 1 Height 169.5 cm (12/20/20 1:18 PM) Weight 82.6 kg (12/20/20 1:18 PM) Oxygen Saturation [94-100 %] 99 % (12/20/20 1:18 PM) Pulse Rate [55-90 bpm] 56 bpm (12/20/20 1:18 PM) Body Mass Index [18.5-24.99] 28.75 *H* (12/20/20 1:18 PM) Blood Pressure [90-138/55-84 mm Hg] 139/74 mm Hg *H* (12/20/20 1:18 PM) Temperature [96.8-100.4 DegF] 98.7 DegF (12/20/20 1:18 PM) Mode of Delivery (Oxygen) Room air (12/20/20 1:18 PM) Blood pressure sites Arm, left (12/20/20 1:18 PM) Temperature Route Oral (12/20/20 1:18 PM) Weight Obtained Via Standing scale (12/20/20 1:18 PM) Social History Social History Type Response Smoking Status Never (less than 100 in life time) entered on: 12/19/19 Sex
--- OUTSIDE RECORDS SUMMARY | 2022-04-29 21:32 | XMS_ITS | Continuity of Care Document ---
:[address] [facility] Adult Address [address] [place] [address]- Care Team Providers Name Role Phone Keagan Madera MD Primary Care Physician [facility] Date[facility]): 10[facility]19 - 11/29/[address] [facility] [address] [place] [phone]- [facility] Allergies, Adverse Reactions, Alerts Substance Reaction Severity [...] toxoids (DT)6 03/21/08 Given 1Result Comment: [11/11/2017] [facility]: [id number] Note: tbmb2Ulxkj Note: vprp2Kfoaq Note: Usov9Mfmrx Note: [facility]6Admin Note: Previous PCP ( Unrecalled ) Medications cromolyn 4% ophthalmic solution 1 drops, Eyes, Both, 4 times a day, PRN as needed for itching, # 10 mL, 0 Refills, Maintenance, 04/13/16 11:00:05, 1 drops Eyes, Both 4 times a day,PRN:as needed for itching Start Date: 04/13/16 Status: OrderedFish Oil 1200 mg oral capsule [...] activity, # 90 tablet, 0 Refills, Maintenance, 04/04/19 11:33:00 EST, Tablet, [facility] 1966, 170.4, cm, 04/04/19 10:54:00 EST, Height Start Date: 04/04/19 Status: OrderedVitamin B6 Daily, 0 Refills, Maintenance, 06/29/17 8:36:44 EDT Start Date: 06/29/17 Status: OrderedVitamin C By Mouth, Daily, 0 Refills, Maintenance, 06/29/17 8:36:24 EDT Start Date: 06/29/17 Status: Ordered Problem List Condition Effective Dates Status Health Status Informant Mild diastolic dysfunction(Confirmed) 04/24/15 Active Glaucoma(Confirmed) Active Erectile dysfunction(Confirmed) Active Dyspepsia(Confirmed) Active
--- OUTSIDE RECORDS SUMMARY | 2022-04-29 21:32 | XMS_ITS | Continuity of Care Document ---
:1955 Author Organization [address], [address] [place] [address]- Care Team Providers Name Role Phone Keagan Madera MD Primary Care Physician Encounter [facility] [place] Date(s): 05/27/20 - 06/03/[address], [address] [place], [place] [address] Attending Physician: Tawanda Alanis MD Referring Physician: Morgan FERNANDES, [place]ita [place] Allergies, Adverse Reactions, Alerts Substance Reaction Severity [...] toxoids (DT)6 03/21/08 Given 1Result Comment: [11/11/2017] [facility]: [id number] Note: kzqr0Qpkin Note: ndla2Hobik Note: Bmaw6Snnxr Note: [facility] [id number] Note: Previous PCP ( Unrecalled ) Medications cromolyn 4% ophthalmic solution 1 drops, Eyes, Both, 4 times a day, PRN as needed for itching, # 10 mL, 0 Refills, Maintenance, 12/19/19 11:25:00 EST, [facility] 1967, 1 drops Eyes, Both 4 [...] 0 Refills, Maintenance, 12/19/19 11:27:00 EST, Tablet, [facility] 1967, 170.4, cm, 12/19/19 11:08:00 EST, Height Start Date: 12/19/19 Status: OrderedVitamin B6 Daily, 0 Refills, Maintenance, 06/29/17 8:36:44 EDT Start Date: 06/29/17 Status: OrderedVitamin C By Mouth, Daily, 0 Refills, Maintenance, 06/29/17 8:36:24 EDT Start Date: 06/29/17 Status: Ordered Problem List Condition Effective Dates Status Health Status Informant Glaucoma(Confirmed) Active Erectile dysfunction(Confirmed) Active Vital Signs Most recent to oldest [Reference Range]: 1 Height 170.4 cm (05/27/20 10:07 AM) Weight 81.8 kg (05/27/20 10:07 AM) Body Mass Index [18.5-24.99] 28.17 *H* (05/27/20 10:07 AM) Social History Social History Type Response Smoking Status Never (less than 100 in life time) entered on: 12/19/19 Sex
--- OUTSIDE RECORDS SUMMARY | 2022-04-29 21:32 | XMS_ITS | Continuity of Care Document ---
:1955 Author Organization [facility] Adult Address [address] [place] [address]- Care Team Providers Name Role Phone Keagan Madera MD Primary Care Physician En[place] [facility] [place] Date(s): 12/30/21 - 01/29/22 [facility] Adult [address] [place] [address]- Allergies, Adverse Reactions, Alerts No Known Allergies Immunizations Given and Recorded Vaccine Date Status Refusal Reason [id number] 12y+ bivalent booster vax 11/28/21 Recorde d SARS-CoV-2 mRNA (xobiaiw-jocz-edomk) vax 09/09/21 Recorde d SARS-CoV-2 (COVID-19) mRNA [...] toxoids (DT)6 03/21/08 Given 1Result Comment: [11/11/2017] [facility] [place]: [id number] Note: sbtw4Sxfso Note: jmhe4Cmxla Note: Eiii8Gosrt Note: [facility]6Admin Note: Previous PCP ( Unrecalled ) Medications Cialis 10 mg oral tablet 1 tablet = 10 mg, By Mouth, Daily, 1 hour before sexual activity, # 5 tablet, 5 Refills, Maintenance, 12/19/21 15:40:00 EST, Tablet, [facility], Partial fill upon [...] Glaucoma Confirmed Active Erectile Confirmed Active dysfunction Social History Social History Type Response Smoking Status Never (less than 100 in life time) entered on: 12/19/19 Sex Patient Care team information Care Team PersonnelName: Keagan Madera MD Position: S Primary Care Physician Member Role: PCP Address: Address: [address] [place] [address] [address] [place] [address]- Care Team Related PersonsName: DAYNA STOVER Address: home [address] [place] [address]
--- OUTSIDE RECORDS SUMMARY | 2022-04-29 21:32 | XMS_ITS | Continuity of Care Document ---
:1955 Author Organization [facility] Adult Address [address] [place] [address]- Care Team Providers Name Role Phone Keagan Madera MD Primary Care Physician [facility] Date(s): 04/04/19 - 04/14/19 [facility] Adult [address] [place] [address] [facility] Attending Physician: Nita Sotomayor Admitting Physician: AdmNita mo Referring Physician: AdmtrNita Allergies, Adverse Reactions, Alerts Substance Reaction Severity [...] (DT)6 03/21/08 Given 1Result Comment: [11/11/2017] [facility]: [id number] Note: afsy4Farii Note: yntn9Ygxjn Note: Cihf0Hpqwj Note: [facility]6Admin Note: Previous PCP ( Unrecalled ) Medications [...] 0 Refills, Maintenance, 04/04/19 11:33:00 EST, Tablet, [facility], 170.4, cm, 04/04/19 10:54:00 EST, Height Start [...]
--- OUTSIDE RECORDS SUMMARY | 2022-04-29 21:32 | XMS_ITS | Continuity of Care Document ---
:1955 Author Organization [facility] Adult Address [address] [place] [address]- Care Team Providers Name Role Phone Keagan Madera MD Primary Care Physician [place] [facility] [place] [facility] [place](s): 12/19/21 - 01/18/22 [facility] [address] [place] [address]- Allergies, Adverse Reactions, Alerts No Known Allergies Immunizations Given and Recorded Vaccine Date Status Refusal Reason [id number] 12y+ bivalent booster vax 11/28/21 Recorde d SARS-CoV-2 mRNA (umbkxkp-wuvc-nscgx) vax 09/09/21 Recorde d SARS-CoV-2 (COVID-19) mRNA [...] (DT)6 03/21/08 Given 1Result Comment: [11/11/2017] [facility]: [id number] Note: xjza5Uuzsl Note: dftp5Ngbug Note: Lzfb1Ladck Note: [facility]6Admin Note: Previous PCP ( Unrecalled ) Medications [...] Physician Member Role: PCP Address: Address: [address] [place] [address] [address] [place] [address]- Care Team Related PersonsName: DAYNA STOVER Address: home [address] [place] [address]
--- OUTSIDE RECORDS SUMMARY | 2022-04-29 21:32 | XMS_ITS | Continuity of Care Document ---
:1955 Author Organization [facility] Adult Address [address] [place] [address]- Care Team Providers Name Role Phone Keagan Madera MD Primary Care Physician [facility]counter [facility] Date(s): 03/17/19 - 07/15/19 [facility] Adult [address] [place] [address] [facility] Attending Physician: Keagan Madera MD Allergies, Adverse [...] 03/21/08 Given 1Result Comment: [11/11/2017] [facility]: [id number] Note: witm4Uodcu Note: zohc5Qcqbz Note: Zsxc7Aksdk Note: [facility]6Admin Note: Previous PCP ( Unrecalled [...] 0 Refills, Maintenance, 04/04/19 11:33:00 EST, Tablet, [facility] 1967, 170.4, cm, 04/04/19 10:54:00 [...]
--- OUTSIDE RECORDS SUMMARY | 2022-04-29 21:32 | XMS_ITS | Continuity of Care Document ---
:1955 Author Organization [facility] Adult Address [address] [place] [address]- Care Team Providers Name Role Phone Keagan Madera MD Primary Care Physician [place] [facility] [place] 02[place]/20 [facility] Adult [address] [place] [address]- Encounter Diagnosis COVID-19 (Discharge Diagnosis) - 01/26/20 Attending Physician: Lauren Hatfield NP Allergies, Adverse Reactions, Alerts Substance Reaction Severity [...] toxoids (DT)6 03/21/08 Given 1Result Comment: [11/11/2017] [facility]: [id number] Note: zpfr1Oeagh Note: gggd1Tupou Note: Qtvl9Huven Note: [facility]6Admin Note: Previous PCP ( Unrecalled ) Medications cromolyn 4% ophthalmic solution 1 drops, Eyes, Both, 4 times a day, PRN as needed for itching, # 10 mL, 0 Refills, Maintenance, 12/19/19 11:25:00 EST, [facility] 1966, 1 drops Eyes, Both 4 times a day,PRN:as needed for itching,170.4, cm, 12/19/19 11:08:00 EST, Height Start Date: 12/19/19 Status: OrderedFish Oil 1200 mg oral capsule 1 capsule = 1,200 mg, By Mouth, 3 times a day, 0 Refills, Maintenance, 06/29/17 8:36:05 EDT Start Date: 06/29/17 Status: OrderedMultivitamin Daily, 0 Refills, Maintenance, 06/29/17 8:36:51 EDT Start Date: 06/29/17 Status: OrderedProAir HFA 90 mcg/inh inhalation aerosol 2 puffs, Inhalation, 4 times a day, PRN as needed for wheezing, for 30 days, # 1 each, 0 Refills, Acute 02/25/20 15:57:00 EST, 01/26/20 15:57:00 EST, [facility], Partial fill upon patient request if the prescription is for a schedu... Start Date: 01/26/20 Stop Date: 02/25/20 Status: OrderedTimolol 0.25% Ophth Eyes, Both, 2 times a day, Refills 0, Maintenance, 06/29/17 8:34:37 EDT Start Date: 06/29/17 Status: OrderedViagra 100 mg oral tablet 1 tablet = 100 mg, By Mouth, Daily, 1 hour before sexual activity, # 90 tablet, 0 Refills, Maintenance, 12/19/19 11:27:00 EST, [facility], 170.4, cm, 12/19/19 11:08:00 EST, Height Start Date: 12/19/19 Status: OrderedVitamin B6 Daily, 0 Refills, Maintenance, 06/29/17 8:36:44 EDT Start Date: 06/29/17 Status: OrderedVitamin C By Mouth, Daily, 0 Refills, Maintenance, 06/29/17 8:36:24 EDT Start Date: 06/29/17 Status: Ordered Problem List Condition Effective Dates Status Health Status Informant Glaucoma(Confirmed) Active Erectile dysfunction(Confirmed) Active Diagnosis Diagnosis Type Effective Dates Health Status Clinical Serv ice Informant COVID-19 Discharge 01/26/20 Diagnosis Vital Signs Most recent to oldest [Reference Range]: 1 Height 170.4 cm (01/26/20 10:03 AM) Social History Social History Type Response Smoking Status Never (less than 100 in life time) entered on: 12/19/19 Sex
--- OUTSIDE RECORDS SUMMARY | 2022-04-29 21:32 | XMS_ITS | Continuity of Care Document ---
:1955 Author Organization [address] [place] [address]- Care Team Providers Name Role Phone Keagan Madera MD Primary Care Physician Encounter [facility] Date(s): 05/27/20 - 06/26/[address], [address] [place], [place] [address] Attending Physician: Nita Sotomayor Admitting Physician: AdmtrNita Referring Physician: Admtr, Ar8 Allergies, Adverse Reactions, Alerts Substance Reaction Severity [...] toxoids (DT)6 03/21/08 Given 1Result Comment: [11/11/2017] [facility] [place]: [id number] Note: jfzn1Zlwtx Note: nydl2Gnvfx Note: Pnzi7Lqdpp Note: [facility]6Admin Note: Previous PCP ( Unrecalled ) Medications cromolyn 4% ophthalmic solution 1 drops, Eyes, Both, 4 times a day, PRN as needed for itching, # 10 mL, 0 Refills, Maintenance, 12/19/19 11:25:00 EST, [facility] 1966, 1 drops Eyes, Both 4 [...] 0 Refills, Maintenance, 12/19/19 11:27:00 EST, Tablet, [facility] 1967, 170.4, cm, 12/19/19 11:08:00 EST, [...]
--- OUTSIDE RECORDS SUMMARY | 2022-04-29 21:32 | XMS_ITS | Continuity of Care Document ---
:1955 Author Organization [facility] Adult Address [address] [place] [address]- Care Team Providers Name Role Phone Keagan Madera MD Primary Care Physician [place] [facility] [place] 02/25/20 [facility] Adult [address] [place] [address]- Attending Physician: Nita Sotomayor Admitting Physician: AdmtrNita Referring Physician: AdmtrNita Allergies, Adverse Reactions, Alerts [...] toxoids (DT)6 03/21/08 Given 1Result Comment: [11/11/2017] [facility]: [id number] Note: fvih6Ldmwf Note: mdje8Lbcqa Note: Xmxc7Lumay Note: [facility]6Admin Note: Previous PCP ( Unrecalled ) Medications cromolyn 4% ophthalmic solution 1 drops, Eyes, Both, 4 times a day, PRN as needed for itching, # 10 mL, 0 Refills, Maintenance, 12/19/19 11:25:00 EST, [facility] 1967, 1 drops Eyes, Both 4 [...] 0 Refills, Maintenance, 12/19/19 11:27:00 EST, Tablet, [facility] 1967, 170.4, cm, 12/19/19 11:08:00 EST, [...]
--- OUTSIDE RECORDS SUMMARY | 2022-04-29 21:32 | XMS_ITS | Continuity of Care Document ---
:1955 Author Organization [facility] Adult Address [address] [place] [address]- Care Team Providers Name Role Phone Keagan Madera MD Primary Care Physician [place] [facility] [place]20 [place] 03/[place]20 [facility] [address] [place] [address]- Encounter Diagnosis Liver cyst (Discharge Diagnosis) - 03/21/20 Bilateral renal cysts (Discharge Diagnosis) - 03/21/20 Attending Physician: Keagan Madera MD Allergies, Adverse [...] toxoids (DT)6 03/21/08 Given 1Result Comment: [11/11/2017] [facility]: [id number] Note: icyn8Kxjrc Note: qtyv2Tswlk Note: Koqu0Okgyn Note: [facility]6Admin Note: Previous PCP ( Unrecalled ) Medications cromolyn 4% ophthalmic solution 1 drops, Eyes, Both, 4 times a day, PRN as needed for itching, # 10 mL, 0 Refills, Maintenance, 12/19/19 11:25:00 EST, [facility] 1967, 1 drops Eyes, Both 4 [...] 0 Refills, Maintenance, 12/19/19 11:27:00 EST, Tablet, [facility], 170.4, cm, 12/19/19 11:08:00 EST, Height Start Date: 12/19/19 Status: OrderedVitamin B6 Daily, 0 Refills, Maintenance, 06/29/17 8:36:44 EDT Start Date: 06/29/17 Status: OrderedVitamin C By Mouth, Daily, 0 Refills, Maintenance, 06/29/17 8:36:24 EDT Start Date: 06/29/17 Status: Ordered Problem List Condition Effective Dates Status Health Status Informant Glaucoma(Confirmed) Active Erectile dysfunction(Confirmed) Active Diagnosis Diagnosis Type Effective Dates Health Status Clinical In formant Service Liver cyst Discharge 03/21/20 Diagnosis Bilateral renal Discharge 03/21/20 cysts Diagnosis Vital Signs Most recent to oldest [Reference Range]: 1 Height 170.4 cm (03/20/20 8:27 AM) Weight 81.8 kg (03/20/20 8:27 AM) Body Mass Index [18.5-24.99] 28.17 *H* (03/20/20 8:27 AM) Weight Obtained Via Patient/family stated (03/20/20 8:27 AM) Social History Social History Type Response Smoking Status Never (less than 100 in life time) entered on: 12/19/19 Sex
--- OUTSIDE RECORDS SUMMARY | 2022-04-29 21:33 | XMS_ITS | Continuity of Care Document ---
:1955 Author Organization [facility] Adult Address [address] [place] [address]- Care Team Providers Name Role Phone Santy UMANA, Keagan Primary Care Physician [place] [facility] [place]): 04/04/19 - 04/11/19 [facility] Adult [address] [place] [address] [facility] Encounter Diagnosis Flank pain (Discharge Diagnosis) - 04/04/19 Attending Physician: Andres [employer]LECT[employer] DRAFTER, Lauren Allergies, Adverse Reactions, Alerts Substance Reaction Severity [...] toxoids (DT)6 03/21/08 Given 1Result Comment: [11/11/2017] [facility]: [id number] Note: bump0Hmdjo Note: lsti9Kmwkj Note: Hade3Ocdhz Note: [facility]6Admin Note: Previous PCP ( Unrecalled ) [...] 0 Refills, Maintenance, 04/04/19 11:33:00 EST, Tablet, Count Includes [facility] 1967, 170.4, cm, 04/04/19 10:54:00 EST, Height Start Date: 04/04/19 Status: OrderedVitamin B6 Daily, 0 Refills, Maintenance, 06/29/17 8:36:44 EDT Start Date: 06/29/17 Status: OrderedVitamin C By Mouth, Daily, 0 Refills, Maintenance, 06/29/17 8:36:24 EDT Start Date: 06/29/17 Status: Ordered Problem List Condition Effective Dates Status Health Status Informant Mild diastolic dysfunction(Confirmed) 04/24/15 Active Glaucoma(Confirmed) Active Erectile dysfunction(Confirmed) Active Dyspepsia(Confirmed) Active Diagnosis Diagnosis Type Effective Dates Health Status Clinical Serv ice Informant Flank pain Discharge 04/04/19 Diagnosis Vital Signs Most recent to oldest [Reference Range]: 1 Height 170.4 cm (04/04/19 10:54 AM) Weight 81.8 kg (04/04/19 10:54 AM) Oxygen Saturation [94-100 %] 96 % (04/04/19 10:54 AM) Pulse Rate [55-90 bpm] 51 bpm *L* (04/04/19 10:54 AM) Body Mass Index [18.5-24.99] 28.17 *H* (04/04/19 10:54 AM) Blood Pressure [90-138/55-84 mm Hg] 124/70 mm Hg (04/04/19 10:54 AM) Blood pressure sites Arm, left (04/04/19 10:54 AM) Temperature Route Oral (04/04/19 10:54 AM) Weight Obtained Via Standing scale (04/04/19 10:54 AM)
--- OUTSIDE RECORDS SUMMARY | 2022-04-29 21:33 | XMS_ITS | Continuity of Care Document ---
:1955 Author Organization [facility] Adult Address [address] [place] [address]- Care Team Providers Name Role Phone Keagan Madera MD Primary Care Physician [place] [facility] [place]20 - 03/01/20 [facility] Adult [address] [place] [address]- Allergies, Adverse Reactions, Alerts Substance Reaction Severity [...] Comment: [11/11/2017] [facility]: [id number] Note: tepl9Apqgq Note: rphq7Zrkgn Note: Aypg1Eztdg Note: [facility]6Admin Note: Previous PCP ( Unrecalled ) Medications cromolyn 4% ophthalmic solution 1 drops, Eyes, Both, 4 times a day, PRN as needed for itching, # 10 mL, 0 Refills, Maintenance, 12/19/19 11:25:00 EST, [facility], 1 drops Eyes, Both 4 [...] 0 Refills, Maintenance, 12/19/19 11:27:00 EST, Tablet, [facility] 1967, 170.4, cm, 12/19/19 11:08:00 EST, [...]
--- OUTSIDE RECORDS SUMMARY | 2022-04-29 21:33 | XMS_ITS | Continuity of Care Document ---
:1955 Author Organization [address], [address] [place] [address]- Care Team Providers Name Role Phone Keagan Madera MD Primary Care Physician Encounter [facility] Date(s): 05/14/20 - 06/13/[address], [address] [place], [place] [address] Allergies, Adverse Reactions, Alerts Substance Reaction Severity [...] toxoids (DT)6 03/21/08 Given 1Result Comment: [11/11/2017] [facility]: [id number] Note: cmso7Fsube Note: mxwn4Pugje Note: Bnts7Bxyth Note: [facility]6Admin Note: Previous PCP ( Unrecalled ) Medications cromolyn 4% ophthalmic solution 1 drops, Eyes, Both, 4 times a day, PRN as needed for itching, # 10 mL, 0 Refills, Maintenance, 12/19/19 11:25:00 EST, [facility] 1966, 1 drops Eyes, Both 4 [...] 0 Refills, Maintenance, 12/19/19 11:27:00 EST, Tablet, [facility] 1966, 170.4, cm, 12/19/19 11:08:00 EST, [...]
[2022-04-29 22:15] VITALS: BP 138/76; PULSE 57; RESP 18; TEMP 36.4; O2SAT 100
[2022-04-29] MEDS: Azithromycin 500 MG TABLET PO (22:27)
== END 2022-04-29 22:33 | disposition home or self-care (01) ==
PROVIDERS: Physician Assistant; Emergency Provider Emergency Medicine
DX: J32.9 Chronic sinusitis, unspecified (principal); Z20.822 Contact with and (suspected) exposure to COVID-19; Z20.828 Contact with and (suspected) exposure to other viral communicable diseases
CPT/HCPCS: 0241U; 71046; 80053; 83690; 83735; 84484; 85025; 93005; 99283; 99284

== ENCOUNTER 2023-08-07 13:07 | Emergency (ER) | payer MEDICARE, SELFPAY ==
--- NOTE | 2023-08-07 | ECG_ITS ---
Test Reason : CHEST PAIN Blood Pressure : / mmHG Vent. Rate : 047 BPM Atrial Rate : 047 BPM P-R Int : 192 ms QRS Dur : 090 ms QT Int : 410 ms P-R-T Axes : 086 -05 014 degrees QTc Int : 362 ms Sinus bradycardia Otherwise normal ECG When compared with ECG of 29-APR-2022 18:11, Vent. rate has decreased BY 24 BPM Referred By: Generic ED Physician Electronically Signed By:DEMAR MOORE MD
--- NOTE | ~2023-08-07 | XR_ITS ---
EXAMINATION: XR chest 2V CLINICAL INFORMATION: Reason for Exam chest pain COMPARISON: Prior chest x-ray April 2022 TECHNIQUE: XR chest 2V, 2 Views Lungs and Danette: Both lungs are clear. Mildly prominent danette unchanged chronic. Pleura: Normal. Costophrenic angles are sharp. No pneumothorax. Heart: The heart is normal in size. Mediastinum: The mediastinum is within normal limits.. Bones: Skeletal structures included are normal for patient's age. XR/XR chest 2V IMPRESSION: No radiographic evidence of acute cardiopulmonary disease.
[2023-08-07 13:38] VITALS: BP 125/64; PULSE 52; RESP 16; TEMP 36.9; O2SAT 97; BMI 28.0
--- NOTE | 2023-08-07 13:38 | ED_ITS ---
HPI - Chest Pain General Chief Complaint: Chest Pain Stated Complaint: Chest pain Time Seen by Provider: 08/07/23 16:38 Source: patient Mode of arrival: ambulatory Limitations: no limitations History of Present Illness ED Provider: Dr. Marcella Casas HPI narrative: Patient comes to the emergency room complaining of left-sided chest pain that started around 09:00, also radiates towards the left shoulder. Patient states that at this time, he has no pain. Patient states that couple of days he did some heavy lifting, moving heavy stuff. Patient states that he has a little bit of left neck soreness. At this time, no chest pain or shortness of breath. Related Data Previous Rx's ?Medication ?Instructions ?Recorded albuterol sulfate 90 mcg/actuation 2 puff inhalation Q4-6H PRN 01/05/20 aerosol inhaler shortness of breath or wheezing #6.7 grams azithromycin 250 mg tablet 250 mg PO DAILY 4 days #4 tabs 04/29/22 fluticasone propionate 50 1 spray intranasal Q12H #16 grams 04/29/22 mcg/actuation nasal spray,suspension (Flonase Allergy Relief) Allergies Allergy/AdvReac Type Severity Reaction Status Date / Time No Known Allergies Allergy Verified 08/07/23 13:38 [No Known Allergies*] Review of Systems 2 Review of Systems: Constitutional : No Weight loss, No Fever, No Chills, No Night Sweats, No Fatigue, No Malaise ENT/Mouth : No Hearing loss, No Ear Pain, No Nasal Congestion, No Sinus Pain, No Hoarseness, No sore throat, No Rhinorrhea, No Swallowing Difficulty Eyes: No Eye Pain, No Swelling, No Redness, No Foreign Body, No Discharge, No Vision Changes Cardiovascular : Complaining of left-sided chest pain radiating towards the left neck and shoulder, No SOB, No Dyspnea on Exertion, No Orthopnea, No Edema, No Palpitations Respiratory : No Cough, No Sputum, No Wheezing, No Smoke Exposure, No Dyspnea Gastrointestinal : No Nausea, No Vomiting, No Diarrhea, No Constipation, No abdominal Pain, No Hematochezia, No Melena Genitourinary : no irregular bleeding, No Dysuria, No Urinary Frequency, No Hematuria, No Urinary Incontinence, No Urgency, No Flank Pain, No Urinary Flow Changes, No Hesitancy Musculoskeletal : No joint pain, No Myalgias, No Joint Swelling Skin : No Skin Lesions, No rash Neuro : No Weakness, No Numbness, No Paresthesias, No Loss of Consciousness, No Dizziness, No Headache Psych : No Anxiety/Panic, No Depression, No SI/HI/AH/VH, No Social Issues, Heme/Lymph: No Bruising, No Bleeding,No Lymphadenopathy Endocrine : No Polyuria, No Polydipsia, No Temperature Intolerance [facility] Past Medical History Medical History No known health problems Social History Social History Alcohol intake: current Alcohol intake frequency: does not drink Advance Directives: No Do you have a plan to hurt others: No Plan Physical Exam 2 Vital Signs: Vital Signs: Last Vital Signs Temp 97.9 F 08/07/23 16:37 Pulse 42 L 08/07/23 18:00 Resp 15 08/07/23 18:00 BP 134/64 08/07/23 18:00 Pulse Ox 97 08/07/23 18:00 O2 Del Method Room Air 08/07/23 18:00 BMI result Body Mass Index 28.0 Const: Other: Appearance: Alert. Oriented X3. No acute distress. Eyes: Pupils equal, round and reactive to light. ENT: Pharynx normal. Neck: Normal inspection. Neck supple. No lymph nodes noted. No crepitus CVS: Normal heart rate and rhythm. Pulses normal. Normal S1 and S2 Respiratory: No respiratory distress. Breath sounds normal. No Wheezing. No rales Abdomen: Soft and nontender. No rigidity. No distention. Skin: Skin warm and dry. Normal skin color. Normal skin turgor. Extremities: No lower extremity edema. No Lacerations. No Rash Neuro: Oriented X 3. No motor deficit. No sensory deficit. Moving all extremities. No slurred speech. CN 2 through 12 grossly intact Psych: calm, cooperative, normal affect Course Course Course Narrative: This is a Rapid Medical Examination (RME) performed by Meggan Pagan PA-C in triage. Full HPI, ROS, assessment and treatment plan per primary provider in the Main ED. 68 yo male here for eval of 8/10 left sided chest pain that began this morning - cannot give an exact time. Took aspirin without relief. pain now radiates to left shoulder/ left neck. has never had this pain before. reports assoc light headedness. denies N/V, sob. no recent travel or long car rides. well appearing. NAD. rrr. lungs cta b/l. Plan: labs, ekg, cxr Medical Decision Making Medical Decision Making [facility] Narrative: My interpretation of labs: Normal hematology and chemistry, troponin x2 negative. -patient had reproducible left-sided chest pain to palpation -my interpretation of chest x-ray: No acute abnormality. -my interpretation of EKG, sinus bradycardia, heart rate 47, no ST segment depression or elevation, no dizziness, blood pressure 134/64. Patient has asymptomatic bradycardia. Patient was walked around the emergency room, oxygen saturation remained 100%, heart rate improved to 60. Patient denies any chest pain or shortness of breath. -discussed with the patient that if he continues having chest pains, he will likely need a stress test. Differential Diagnosis Differential Diagnoses: The differential diagnosis associated with the presentation includes (Musculoskeletal pain, ACS, NSTEMI, musculoskeletal pain) Admission/Observation Consideration of admission/observation: Escalation of care including admission/observation considered (Given patient's age and symptoms, observation was considered) Lab Data [facility] Lab Attestation statement: I reviewed the patient's lab results. 08/07/23 13:48 08/07/23 13:48 Labs: Lab Results 08/07/23 08/07/23 Range/Units 13:48 17:04 WBC 4.3 L (4.8-10.8) X10*3/uL RBC 4.39 L (4.60-5.80) X10*6/uL Hgb 13.4 L (14.0-18.0) g/dl Hct 39.0 L (42.0-52.0) % MCV 88.8 (80.0-98.0) fL MCH 30.5 (27.0-33.0) pg MCHC 34.4 (31.0-36.0) g/dl RDW 11.9 (11.0-16.0) % Plt Count 184 (160-400) X10*3/uL MPV 10.8 (9.4-12.4) fL Immature Gran % (Auto) 0.2 (0.0-0.4) % Neut % (Auto) 51.8 (45-73) % Lymph % (Auto) 36.1 (20-40) % [place] % (Auto) 8.9 (2-11) % Eos % (Auto) 2.3 (0-4) % Baso % (Auto) 0.7 (0-2) % Lymph # (Auto) 1.5 (1.2-4.9) X10*3/uL [place] # (Auto) 0.4 (0.1-1.2) X10*3/uL Eos # (Auto) 0.1 (0.0-0.4) X10*3/uL Baso # (Auto) 0.0 (0.0-0.2) X10*3/uL Abs Immat Gran (auto) 0.01 (0.00-0.03) X10*3/uL Absolute Neuts (auto) 2.2 (2.0-8.3) x10*3/uL Absolute Nucleated RBC 0.000 (0.0-0.012) X10*3/uL Nucleated RBC % (auto) 0.0 (0.0-0.2) /100WBC PT 12.2 (11.1-13.3) SEC INR 1.0 (0.9-1.1) Sodium 141 (135-145) mmol/L Potassium 3.8 (3.3-5.1) mmol/L Chloride 106 (96-108) mmol/L Carbon Dioxide 28 (22-29) mmol/L Anion Gap 11 L (12-20) BUN 9 (9-16) mg/dL Creatinine 0.86 (0.5-1.4) mg/dL Estim Creat Clear Calc 85.0 Estimated GFR > 60 Random Glucose 98 (60-115) mg/dL Calcium 9.2 (8.4-10.2) mg/dL Magnesium 2.1 (1.6-2.6) mg/dL Total Bilirubin 0.7 (0.0-1.0) mg/dL AST 16 (5-37) U/L ALT 16 (0-40) U/L Alkaline Phosphatase 66 (39-117) U/L Troponin I High Sens < 2.7 < 2.7 (<3.5-35.0) ng/L Total Protein 6.7 (6.5-8.0) g/dL Albumin 3.9 (3.5-5.0) g/dL Lipase 19 (8-78) U/L Independent Interpretation I performed an independent interpretation of an: EKG and Plain X-Ray Radiology Impression Discussion of test interpretation with radiology: I have reviewed the radiologist's reading. Radiologist Impression: ungs and Verito: Both lungs are clear. Mildly prominent verito unchanged chronic. Pleura: Normal. Costophrenic angles are sharp. No pneumothorax. Heart: The heart is normal in size. Mediastinum: The mediastinum is within normal limits.. Bones: Skeletal structures included are normal for patient's age. XR/XR chest 2V IMPRESSION: No radiographic evidence of acute cardiopulmonary disease. Discharge Plan Discharge Clinical Impression: Atypical chest pain Patient Disposition: Home, Self-Care Instructions: Chest Pain (ED) Additional Instructions: Please follow-up with your primary care physician tomorrow. If you have any worsening or new symptoms, please return to the emergency room or call 911 Prescriptions: No Action albuterol sulfate 90 mcg/actuation HFA aerosol inhaler 2 puff inhalation Q4-6H PRN (Reason: shortness of breath or wheezing) Qty: 6.7 0RF azithromycin 250 mg tablet 250 mg PO DAILY 4 Days Qty: 4 0RF Rx Instructions: start on day 2 of therapy fluticasone propionate [Flonase Allergy Relief] 50 mcg/actuation spray,suspension 1 spray intranasal Q12H Qty: 16 0RF Rx Instructions: administer into each nostril Print Language: Croatian
[2023-08-07 14:07] LABS: MANUAL DIFF FLAG NO
[2023-08-07 14:08] LABS: Basophils Percent Auto 0.7 % (0-2); Eosinophils Absolute Auto 0.1 X10*3/uL (0.0-0.4); Eosinophils Percent Auto 2.3 % (0-4); Hemoglobin 13.4 g/dl (14.0-18.0); Imm Gran Abs Auto 0.01 X10*3/uL (0.00-0.03); Imm Gran Pct Auto 0.2 % (0.0-0.4); Lymphocytes Absolute Auto 1.5 X10*3/uL (1.2-4.9); Lymphocytes Percent Auto 36.1 % (20-40); Mean Corpuscular HGB Conc 34.4 g/dl (31.0-36.0); Mean Corpuscular Hemoglobin 30.5 pg (27.0-33.0); Mean Corpuscular Volume 88.8 fL (80.0-98.0); Mean Platelet Volume 10.8 fL (9.4-12.4); Monocytes Absolute Auto 0.4 X10*3/uL (0.1-1.2); Monocytes Percent Auto 8.9 % (2-11); Neutrophils Absolute Auto 2.2 x10*3/uL (2.0-8.3); Neutrophils Percent Auto 51.8 % (45-73); Platelet Count 184 X10*3/uL (160-400); Red Blood Count 4.39 X10*6/uL (4.60-5.80); Red Cell Distribution Width 11.9 % (11.0-16.0); White Blood Count 4.3 X10*3/uL (4.8-10.8)
[2023-08-07 14:13] LABS: Prothrombin Time 12.2 SEC (11.1-13.3)
[2023-08-07 14:29] LABS: Alanine Aminotransferase 16 U/L (0-40); Albumin Level 3.9 g/dL (3.5-5.0); Alkaline Phosphatase 66 U/L (39-117); Anion Gap 11 (12-20); Aspartate Amino Transferase 16 U/L (5-37); Bilirubin Total 0.7 mg/dL (0.0-1.0); Blood Urea Nitrogen 9 mg/dL (9-16); Calcium 9.2 mg/dL (8.4-10.2); Carbon Dioxide 28 mmol/L (22-29); Chloride 106 mmol/L (96-108); Estimated Glomerular Filt Rate > 60; Glucose Random 98 mg/dL (60-115); Lipase 19 U/L (8-78); Magnesium 2.1 mg/dL (1.6-2.6); Potassium 3.8 mmol/L (3.3-5.1); Sodium 141 mmol/L (135-145); Total Protein 6.7 g/dL (6.5-8.0)
[2023-08-07 14:34] LABS: Troponin-I High Sensitivity < 2.7 ng/L (<3.5-35.0)
[2023-08-07 16:37] VITALS: BP 134/69; PULSE 46; RESP 16; TEMP 36.6; O2SAT 98
--- NOTE | 2023-08-07 16:44 | PC.NURSE ---
Pt comes from home for CP that started this morning. He was sitting on the couch when the chest pain started. pt took 324mg of asa at home that relieved some of the pain. Denies n/v/d/sob. States he feels lightheaded, cp on left side of his chest that radiates up his shoulder and into his arm. Pt states he hasn't had this before. Sinus kellen 45s-50s noted on the monitor. A/ox4, respirations even and unlabored,S1 and S2 heard, abdomen soft and non-tender, vitals up to date, resting in bed quietly, call andesr within reach. Awaiting further orders at this time
[2023-08-07 17:34] LABS: Troponin-I High Sensitivity < 2.7 ng/L (<3.5-35.0)
[2023-08-07 18:00] VITALS: BP 134/64; PULSE 42; RESP 15; O2SAT 97
[2023-08-07 20:14] VITALS: BP 172/78; PULSE 56; RESP 16; TEMP 36.6; O2SAT 100
[2023-08-07 20:38] VITALS: BP 172/78; PULSE 56; RESP 16; TEMP 36.6; O2SAT 100
== END 2023-08-07 20:39 | disposition home or self-care (01) ==
PROVIDERS: Physician Assistant Medical; Emergency Provider Emergency Medicine; PCP Internal Medicine
DX: R07.89 Other chest pain (principal); Z79.899 Other long term (current) drug therapy
CPT/HCPCS: 36415; 71046; 80053; 83690; 83735; 84484; 85025; 85610; 93005; 99283; 99285

== ENCOUNTER → 2023-08-07 13:26 | Outpatient (BNV) | payer MEDICARE, SELFPAY | PROVIDERS: Emergency Provider Emergency Medicine; PCP Internal Medicine; Visit Provider Internal Medicine Cardiovascular Disease | DX: R00.1 Bradycardia, unspecified (principal) | CPT/HCPCS: 93010 ==